=== PATIENT | male | born 1985 | race African-American/Black ===

== ENCOUNTER 2020-09-21 12:34 | Emergency (ER) | payer BC, SELFPAY ==
[2020-09-21 13:19] VITALS: BP 126/86; PULSE 111; RESP 18; TEMP 37.4; O2SAT 95; BMI 26.2
--- NOTE | 2020-09-21 13:54 | ED_ITS ---
HPI - COVID General: Chief Complaint: COVID symptoms Stated Complaint: Body aches Chest pain N/V Covid + Time Seen by Provider: 09/21/20 13:54 Triage information: No fever, cough or shortness of breath . Exposure to COVID + person last 14 days History of Present Illness: HPI Narrative: 35-year-old male patient comes in on day 8 of Covid 19 infection. Patient reports some chest discomfort and difficulty breathing at times. Patient was concerned he may be developing pneumonia. Patient appears mildly unwell but not toxic. Patient reports medical issues with anxiety but no other chronic illnesses. Patient does use marijuana and smokes cigarettes occasionally. Patient reports being diagnosed with Covid last week with symptoms starting on last Sunday. Patient appears in no pain. COVID Results: No Data to Display Review of Systems General: Reports: 10 or more systems reviewed and unremarkable except in HPI and below Resp: Reports: chest congestion Physical Exam Const: COMMON NORMALS: no acute distress and patient oriented x3 GENERAL APPEARANCE: cooperative HENMT: COMMON NORMALS: normocephalic and Normal external nose present HEAD & SCALP: normal to inspection and normocephalic NOSE: Normal external nose present MOUTH: Normal oral and palatal mucosa present Eye: GENERAL EYE: appearance normal, both eyes and all related structures Neck/C-Spine: COMMON NORMALS: full ROM Lymph: LYMPHATIC: no lymphadenopathy noted Chest: COMMONS NORMALS: normal inspection of the chest Resp: COMMON NORMALS: normal respiratory effort EFFORT & INSPECTION: Yes able to speak in complete sentences AUSCULTATION: crackles (rupinder lower rausch) Cardio: COMMON NORMALS: regular rate and regular rhythm RATE: regular rate RHYTHM: regular rhythm GI: COMMON NORMALS: non-tender : COMMON NORMALS: Yes no CVA tenderness BLADDER/KIDNEY EXAM: Yes no CVA tenderness Back/Pelvis: COMMON NORMALS: no CVA tenderness and thoracic and lumbar spine normal to inspection Extremity: COMMON NORMALS: normal to inspection Neuro: COMMON NORMALS: patient oriented x3 and moves all extremities Psych: COMMON NORMALS: mental status grossly normal and cooperative Skin: COMMON NORMALS: no rashes or lesions noted GENERAL SKIN EXAM: no rashes or lesions noted Course Vital Signs: Vital signs: Vital Signs Temperature 99.4 F 09/21/20 13:19 Pulse Rate 111 H 09/21/20 13:19 Respiratory Rate 18 09/21/20 13:19 Blood Pressure 126/86 09/21/20 13:19 Pulse Oximetry 95 09/21/20 14:08 MDM - COVID MDM Narrative: Medical decision making narrative: Patient came in today on day 8 of a COVID-19 infection. Patient reports some chest discomfort and some difficulty breathing. Patient was concerned he may be developing pneumonia. On exam patient has some crackles in bilateral rausch of the lungs with good air movement throughout. Vital signs are normal with a oxygen saturation 95%. Patient did have some mild tachycardia of heart rate at 110. Differential diagnosis includes but not limited to upper respiratory infection, pneumonia, viral syndrome, COVID-19. Patient tested positive for COVID-19 last week. Patient reports symptoms for 8 days. Patient is on quarantine until Sunday this week. Chest x-ray noted bilateral patchy rausch. Reviewed exam with patient recommended treatment with albuterol and dexamethasone. Patient reported understanding of care plan and need for follow-up or return to the ER for worsening symptoms. EKG Data: EKG 1: Attestation: I personally reviewed and interpreted this EKG as follows: (1425, EKG shows sinus tachycardia with a regular rate at 104 bpm. No ectopy or ST elevation is noted. No prior exam is available for comparison.) COVID Results: No Data to Display Discharge Plan Discharge Patient Disposition: Home Clinical Impression: Pneumonia due to 2019-nCoV Condition: Stable Prescriptions: New dexamethasone 4 mg tablet 4 mg PO BID Qty: 10 RF: 0 No Action albuterol sulfate 2.5 mg /3 mL (0.083 %) Solution For Nebulization 2.5 mg INHALATION Q4H PRN (Reason: Shortness Of Breath) RF: 0 albuterol sulfate 90 mcg/actuation HFA aerosol inhaler 2 puff INHALATION Q6H PRN (Reason: Wheezing) RF: 0 Discharge Orders: Discharge ED (Routine); Ordered 09/21/20 Ordered By: Viktor Gutierrez Referrals: Ranjana Carrera APN [Primary Care Provider] - Discharge Diet: Usual diet Discharge Activity: Increase activity as tolerated Patient Instructions: Viral Pneumonia (ED), Opioid Safety Activity Restrictions/Additional Instructions: Use albuterol every 4 hours as needed for shortness of breath or difficulty breathing. Use albuterol at least 4 times a day. Drink plenty of water. Take dexamethasone as directed. Return to the emergency room for worsening symptoms. Follow-up with primary care as needed. Coding Level of Care Code ED Area Intelligence Technician for Chg Fwd Exam Comprehensive
--- NOTE | 2020-09-21 13:54 | XRR_ITS ---
PROCEDURE INFORMATION: Exam: XR Chest Exam date and time: 09/21/2020 1:54 PM Age: 35 years old Clinical indication: Pain, cough and shortness of breath. Angina pectoris. TECHNIQUE: Imaging protocol: XR of the chest. Views: 1 view. COMPARISON: CR Chest 2 views* [id number] 03/11/2018 3:34 PM FINDINGS: Lungs: There are patchy hazy opacities in the lower chest bilaterally suspicious for pneumonia (including COVID 19 pneumonia). Pleural spaces: No pleural effusion.; No pneumothorax. Heart/Mediastinum: The cardiac silhouette is unchanged. No gross evidence of pneumomediastinum. Bones/joints: No gross fracture. XR/XR chest 1V portable [id number] IMPRESSION: There are patchy hazy opacities in the lower chest bilaterally suspicious for pneumonia (including COVID 19 pneumonia).
--- NOTE | 2020-09-21 14:06 | ECG_ITS ---
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 Measurements Intervals [place] Rate: 104 P: 65 MT: 136 QRS: -44 QRSD: 83 T: 44 QT: 330 QTc: 435 Interpretive Statements SINUS TACHYCARDIA POSSIBLE LEFT ATRIAL ENLARGEMENT [-0.1mV P WAVE IN V1/V2] MARKED LEFT AXIS DEVIATION [QRS AXIS < -30] No previous ECG available for comparison Electronically Signed On 09-21-2020 16:10:18 CDT by Susu Gatica M.D. [id number]
[2020-09-21 14:08] VITALS: O2SAT 95
[2020-09-21] MEDS: dexamethasone 4 mg Tablet 8 MG PO (14:35)
[2020-09-21 14:43] VITALS: BP 148/98; PULSE 104; RESP 18; O2SAT 97
== END 2020-09-21 14:44 | disposition home or self-care (01) ==
PROVIDERS: Emergency Provider Nurse Practitioner Family; PCP Nurse Practitioner
DX: U07.1 COVID-19 (principal); J12.82 Pneumonia due to coronavirus disease 2019
CPT/HCPCS: 71045; 93005; 99283; J8540

== ENCOUNTER 2020-10-26 09:17 | Outpatient (CLI) | payer BC, SELFPAY ==
--- NOTE | 2020-10-26 09:27 | XRR_ITS ---
PROCEDURE INFORMATION: Exam: XR Chest Exam date and time: 10/26/2020 9:27 AM Age: 35 years old Clinical indication: Patient HX: History--2 lateral xray. HX of covid. Cough TECHNIQUE: Imaging protocol: XR of the chest. Views: 2 views. Total images: 3 COMPARISON: CR XR chest 1V portable [id number] 09/21/2020 2:01 PM FINDINGS: Lungs: Unremarkable. No consolidation. Pleural spaces: Unremarkable. No pleural effusion. No pneumothorax. Heart/Mediastinum: Unremarkable. No cardiomegaly. Bones/joints: Unremarkable. XR/XR chest 2V* [id number] IMPRESSION: No acute findings.
== END 2020-10-26 09:18 | disposition home or self-care (01) ==
PROVIDERS: PCP Nurse Practitioner; Visit Provider Nurse Practitioner Family
DX: R05 Cough (principal); R06.02 Shortness of breath; Z86.16 Personal history of COVID-19
CPT/HCPCS: 71046

== ENCOUNTER 2021-03-30 14:53 | Emergency (ER) | payer BC, SELFPAY ==
[2021-03-30 15:00] VITALS: BP 141/87; PULSE 95; RESP 18; TEMP 36.7; O2SAT 98; BMI 26.9
--- NOTE | 2021-03-30 15:05 | ECG_ITS ---
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 Measurements Intervals [place] Rate: 81 P: [place]: QRS: 105 QRSD: 86 T: 0 QT: 341 QTc: 397 Interpretive Statements Normal sinus rhythm RIGHT AXIS DEVIATION [QRS AXIS > 100] POSSIBLE RIGHT VENTRICULAR CONDUCTION DELAY [RSR (QR) IN V1/V2] PROBABLE SEPTAL MYOCARDIAL INFARCTION , OF INDETERMINATE AGE [35 ms Q WAVE IN V1/V2] Compared to ECG 09/21/2020 14:15:52 Right-axis deviation now present Myocardial infarct finding now present Sinus tachycardia no longer present Left-axis deviation no longer present Electronically Signed On 03-30-2021 20:13:39 CREATIVE ENGAGEMENT DIRECTOR by Tucker Moody M.D. [id number]
--- NOTE | 2021-03-30 15:05 | XR_ITS ---
WS: [id number] Exam: XR chest 1V portable [id number] Date/Time of Exam: 03/30/2021 3:05 PM Reason For Exam: chest pain Comparison 10/26/2020. Findings: The lungs are clear and fully expanded. Costophrenic angles are sharp. No infiltrates. Bronchovascula r relief appears normal. Cardiac silhouette is unremarkable. Bony elements are intact. XR/XR chest 1V portable [id number] IMPRESSION: Unremarkable chest radiograph.
--- NOTE | 2021-03-30 15:09 | ED_ITS ---
Documented by User: ARON Roberto 03/30/21 16:26 HPI - Chest Pain General: Chief Complaint: Chest Pain Stated Complaint: HAD chest pain not now though Time Seen by Provider: 03/30/21 14:56 Source: patient Mode of arrival: ambulatory Limitations: no limitations History of Present Illness: Patient is a nice 35-year-old male who presents to ED today for evaluation following an episode of chest pain. Patient states approximately an hour ago while at rest watching TV he began developing left- sided chest pain. He states pain moved slightly down into his abdomen and desc ribed as a burning sensation. He states pain lasted for approximately an hour but states while talking to the loading machine operator helper pain completely alleviated. He has had similar pains previously that he has been told have been related to anxiety. He was concerned today because his pain was more intense than previous episodes. Patient states he has received cardiac work-ups previously including a stress test approximately a year ago that was normal. Patient is not having any shortness of breath or difficulty breathing. No palpitations. He currently denies any abdominal pain, nausea, vomiting, changes in bowel movements. He has not noticed any lower extremity redness or swelling. MD complaint: chest pain Onset (ago): hour(s) Timing of current episode: now resolved Prior episodes: Yes Onset: during rest Pain location: left chest Pain radiation: other (abdomen) Relieving factors: nothing Exacerbating factors: nothing Associated symptoms: Deny abdominal pain, dyspnea, fever(s), nausea, palpitations, syncope or vomiting Treatment prior to arrival: none Risk Factors: Coronary artery disease risk factors: hypertension Thoracic aortic dissection risk factors: none Review of Systems Const: Denies: fever(s), chills, body aches, fatigue or malaise ENMT: Denies: throat pain or odynophagia Card: Reports: chest pain (resolved now); Denies: palpitations, irregular heart rhythm, edema, swelling of feet/ankles, lightheadedness, syncope, pre-syncope, dyspnea on exertion, orthopnea, leg pain with exertion or acrocyanosis Resp: Denies: dyspnea, productive cough, non-productive cough, pain on inspiration or chest congestion GI: Denies: abdominal pain, nausea, vomiting or diarrhea : Denies: flank pain, dysuria or hematuria Musc: Denies: neck pain, back pain, extremity pain or joint pain Skin/Breast: Denies: rash Neuro: Denies: headache(s), numbness in extremities, weakness in extremities, sensory changes or dizziness Physical Exam Const: COMMON NORMALS: no acute distress, average body habitus, patient oriented x3, no limitations, healthy appearing, alert and well nourished GENERAL APPEARANCE: cooperative HENMT: COMMON NORMALS: normocephalic and atraumatic HEAD & SCALP: normoce phalic and atraumatic Neck/C-Spine: COMMON NORMALS: full ROM GENERAL: Yes normal visual inspection, No anterior neck swelling and No JVD CAROTIDS: Yes normal carotid upstroke Chest: COMMONS NORMALS: normal inspection of the chest and normal palpation of entire chest wall Resp: COMMON NORMALS: normal respiratory effort and clear to auscultation bilaterally AUSCULTATION: clear to auscultation bilaterally Cardio: COMMON NORMALS: regular rate and regular rhythm RATE: regular rate RHYTHM: regular rhythm GI: COMMON NORMALS: Normal to inspection, nondistended, normoactive bowel sounds present, Soft to palpation, non-tender, No hepatosplenomegaly present and no masses PALPATION: Yes Soft to palpation and Yes No hepatosplenomegaly present Back/Pelvis: COMMON NORMALS: thoracic and lumbar spine normal to inspection, no thoracic nor lumbar tenderness and thoraco-lumbar ROM normal Extremity: COMMON NORMALS: normal to inspection, capillary refill normal, no joint enlargement, no clubbing, cyanosis or edema, no calf tenderness and no pedal edema GENERAL: Yes normal exam except as noted Neuro: COMMON NORMALS: patient oriented x3, moves all extremities, no focal motor deficits and no sensory deficits noted SENSORIUM/ORIENTATION: Yes alert Skin: COMMON NORMALS: no rashes or lesions noted GENERAL SKIN EXAM: no rashes or lesions noted Course Vital Signs: Vital signs: Vital Signs Temperature 98.0 F 03/30/21 16:28 Pulse Rate 71 03/30/21 16:28 Respiratory Rate 16 03/30/21 16:28 Blood Pressure 137/78 03/30/21 16:28 Pulse Oximetry 99 03/30/21 16:28 [facility] - Chest Pain Medical Decision Making Patient is a 35-year-old here for evaluation following an episode of chest pain. Chest pain completely resolved upon arrival to the ED and he did not have any further episodes during his stay. Work-up including CBC, CMP, troponin were all unremarkable. CXR is normal. EKG showing no ischemic changes. Patient has had pains previously related to anxiety. He has had a stress test approximately a year ago that was reportedly normal. At this time I recommend patient follow-up with PCP for any further episodes. He may return to the ED at anytime for severe chest pain, shortness of breath, difficulty breathing, or any other concerns he may have. Patient verbalized understanding of current plan and is stable for discharge at this time. Lab Data : 03/30/21 15:25 03/30/21 15:25 Radiology Impressions Chest X-Ray 03/30/21 15:05 IMPRESSION: Unremarkable chest radiograph. Laboratory Results WBC 4.4 10^3/uL (4.0-10.0) 03/30/21 15:25 RBC 4.73 10^6/uL (4.1-5.3) 03/30/21 15:25 Hgb 14.7 g/dL (11.7-16.6) 03/30/21 15:25 Hct 42.4 % (42.0-52.0) 03/30/21 15:25 MCV 89.6 fl (80-94) 03/30/21 15:25 MCH 31.1 pg (28.0-34.0) 03/30/21 15:25 MCHC 34.7 g/dL (30.0-36.0) 03/30/21 15:25 RDW 11.6 % (12.1-15.1) L 03/30/21 15:25 Plt Count 243 10^3/cmm (130-400) 03/30/21 15:25 MPV 10.4 fL (7.4-10.4) 03/30/21 15:25 Neut % (Auto) 48.4 % 03/30/21 15:25 Lymph % (Auto) 41.0 % 03/30/21 15:25 [place] % (Auto) 8.6 % 03/30/21 15:25 Eos % (Auto) 1.1 % 03/30/21 15:25 Baso % (Auto) 0.7 % 03/30/21 15:25 Neut # (Auto) 2.14 10^3/uL (1.8-7.7) 03/30/21 15:25 Lymph # (Auto) 1.8 10^3/uL (0.8-4.8) 03/30/21 15:25 [place] # (Auto) 0.4 10^3/uL (0.2-0.9) 03/30/21 15:25 Eos # (Auto) 0.1 10^3/uL (0.0-0.8) 03/30/21 15:25 Baso # (Auto) 0.0 10^3/uL (0.0-0.1) 03/30/21 15:25 Nucleated RBC % (auto) 0 % 03/30/21 15:25 Nucleated RBCs # 0.0 /100WBC 03/30/21 15:25 Sodium 138 mmol/L (136-145) 03/30/21 15:25 Potassium 4.3 mmol/L (3.5-5.1) 03/30/21 15:25 Chloride 101 mmol/L (98-107) 03/30/21 15:25 Carbon Dioxide 25 mmol/L (22-29) 03/30/21 15:25 Anion Gap 16.3 (5-19) 03/30/21 15:25 BUN 12 mg/dL (6-20) 03/30/21 15:25 Creatinine 1.3 mg/dL (0.7-1.2) H 03/30/21 15:25 GFR Calculation 75.6 mL/min (90-130) L 03/30/21 15:25 Glucose 106 mg/dL (65-115) 03/30/21 15:25 Calculated Osmolality 286 mOsm/kg (285-295) 03/30/21 15:25 Calcium 10.1 mg/dL (8.5-10.5) 03/30/21 15:25 Total Bilirubin 0.5 mg/dL (0.15-1.2) 03/30/21 15:25 AST 42 U/L (0-40) H 03/30/21 15:25 ALT 38 U/L (0-41) 03/30/21 15:25 Alkaline Phosphatase 79 IU/L (40-130) 03/30/21 15:25 Troponin T Gen 5 ng/L 9 ng/L (0-15) 03/30/21 15:25 Total Protein 7.9 g/dL (6.6-8.7) 03/30/21 15:25 Albumin 5.2 g/dL (3.5-5.2) 03/30/21 15:25 Globulin 2.7 g/dL (1.3-4.6) 03/30/21 15:25 EKG Data EKG 1: EKG interpretation date: 03/30/21 EKG interpretation time: 15:16 Interpretation: Normal sinus rhythm Rate 81 Computer-generated interpretation reading a flutter/tachycardia which is not accurate T wave inversions noted in lead III; no reciprocal changes EKG reviewed along with Dr. Mae Discharge Plan Discharge Patient Disposition: Home Clinical Impression: Non-cardiac chest pain Condition: Stable Prescriptions: No Action albuterol sulfate 2.5 mg /3 mL (0.083 %) Solution For Nebulization 2.5 mg INHALATION Q4H PRN (Reason: Shortness Of Breath) 0RF Rx Instructions: SEE PHARMACY COMMENT albuterol sulfate 90 mcg/actuation HFA aerosol inhaler 2 puff INHALATION Q6H PRN (Reason: Wheezing) 0RF dexamethasone 4 mg tablet 4 mg PO BID Qty: 10 0RF Discharge Orders: Discharge ED (Routine); Ordered 03/30/21 Ordered By: Nathaly Bass Coding Level of Care Code ED Trip Rider for Chg Fwd Exam Comprehensive Documented by User: Reen Mae DO 03/30/21 16:54 HPI - Chest Pain General: Chief Complaint: Chest Pain Stated Complaint: HAD chest pain not now though Time Seen by Provider: 03/30/21 14:56 Course Vital Signs: Vital signs: Vital Signs Temperature 98.0 F 03/30/21 16:28 Pulse Rate 71 03/30/21 16:28 Respiratory Rate 16 03/30/21 16:28 Blood Pressure 137/78 03/30/21 16:28 Pulse Oximetry 99 03/30/21 16:28 MDM - Chest Pain Medical Decision Making Patient is a 35-year-old here for evaluation following an episode of chest pain. Chest pain completely resolved upon arrival to the ED and he did not have any further episodes during his stay. Work-up including CBC, CMP, troponin were all unremarkable. CXR is normal. EKG showing no ischemic changes. Patient has had pains previously related to anxiety. He has had a stress test approximately a year ago that was reportedly normal. At this time I recommend patient follow-up with PCP for any further episodes. He may return to the ED at anytime for severe chest pain, shortness of breath, difficulty breathing, or any other concerns he may have. Patient verbalized understanding of current plan and is stable for discharge at this time. Chart reviewed and patient discussed with midlevel. Agree with assessment and plan. Lab Data : 03/30/21 15:25 03/30/21 15:25 Radiology Impressions Chest X-Ray 03/30/21 15:05 IMPRESSION: Unremarkable chest radiograph. Laboratory Results WBC 4.4 10^3/uL (4.0-10.0) 03/30/21 15:25 RBC 4.73 10^6/uL (4.1-5.3) 03/30/21 15:25 Hgb 14.7 g/dL (11.7-16.6) 03/30/21 15:25 Hct 42.4 % (42.0-52.0) 03/30/21 15:25 MCV 89.6 fl (80-94) 03/30/21 15:25 MCH 31.1 pg (28.0-34.0) 03/30/21 15:25 MCHC 34.7 g/dL (30.0-36.0) 03/30/21 15:25 RDW 11.6 % (12.1-15.1) L 03/30/21 15:25 Plt Count 243 10^3/cmm (130-400) 03/30/21 15:25 MPV 10.4 fL (7.4-10.4) 03/30/21 15:25 Neut % (Auto) 48.4 % 03/30/21 15:25 Lymph % (Auto) 41.0 % 03/30/21 15:25 [place] % (Auto) 8.6 % 03/30/21 15:25 Eos % (Auto) 1.1 % 03/30/21 15:25 Baso % (Auto) 0.7 % 03/30/21 15:25 Neut # (Auto) 2.14 10^3/uL (1.8-7.7) 03/30/21 15:25 Lymph # (Auto) 1.8 10^3/uL (0.8-4.8) 03/30/21 15:25 [place] # (Auto) 0.4 10^3/uL (0.2-0.9) 03/30/21 15:25 Eos # (Auto) 0.1 10^3/uL (0.0-0.8) 03/30/21 15:25 Baso # (Auto) 0.0 10^3/uL (0.0-0.1) 03/30/21 15:25 Nucleated RBC % (auto) 0 % 03/30/21 15:25 Nucleated RBCs # 0.0 /100WBC 03/30/21 15:25 Sodium 138 mmol/L (136-145) 03/30/21 15:25 Potassium 4.3 mmol/L (3.5-5.1) 03/30/21 15:25 Chloride 101 mmol/L (98-107) 03/30/21 15:25 Carbon Dioxide 25 mmol/L (22-29) 03/30/21 15:25 Anion Gap 16.3 (5-19) 03/30/21 15:25 BUN 12 mg/dL (6-20) 03/30/21 15:25 Creatinine 1.3 mg/dL (0.7-1.2) H 03/30/21 15:25 GFR Calculation 75.6 mL/min (90-130) L 03/30/21 15:25 Glucose 106 mg/dL (65-115) 03/30/21 15:25 Calculated Osmolality 286 mOsm/kg (285-295) 03/30/21 15:25 Calcium 10.1 mg/dL (8.5-10.5) 03/30/21 15:25 Total Bilirubin 0.5 mg/dL (0.15-1.2) 03/30/21 15:25 AST 42 U/L (0-40) H 03/30/21 15:25 ALT 38 U/L (0-41) 03/30/21 15:25 Alkaline Phosphatase 79 IU/L (40-130) 03/30/21 15:25 Troponin T Gen 5 ng/L 9 ng/L (0-15) 03/30/21 15:25 Total Protein 7.9 g/dL (6.6-8.7) 03/30/21 15:25 Albumin 5.2 g/dL (3.5-5.2) 03/30/21 15:25 Globulin 2.7 g/dL (1.3-4.6) 03/30/21 15:25 Discharge Plan Discharge Patient Disposition: Home Clinical Impression: Non-cardiac chest pain Condition: Stable Prescriptions: No Action albuterol sulfate 2.5 mg /3 mL (0.083 %) Solution For Nebulization 2.5 mg INHALATION Q4H PRN (Reason: Shortness Of Breath) 0RF Rx Instructions: SEE PHARMACY COMMENT albuterol sulfate 90 mcg/actuation HFA aerosol inhaler 2 puff INHALATION Q6H PRN (Reason: Wheezing) 0RF dexamethasone 4 mg tablet 4 mg PO BID Qty: 10 0RF Discharge Orders: Discharge ED (Routine); Ordered 03/30/21 Ordered By: Nathaly Bass Coding Level of Care Code ED Trip Rider for Chg Fwd Exam Comprehensive
[2021-03-30 15:38] LABS: Basophils % 0.7 %; Eosinophils # 0.1 10^3/uL (0.0-0.8); Eosinophils % 1.1 %; Hematocrit 42.4 % (42.0-52.0); Hemoglobin 14.7 g/dL (11.7-16.6); Lymphocytes # 1.8 10^3/uL (0.8-4.8); Mean Corpuscular HGB Conc 34.7 g/dL (30.0-36.0); Mean Corpuscular Hemoglobin 31.1 pg (28.0-34.0); Mean Corpuscular Volume 89.6 fl (80-94); Mean Platelet Volume 10.4 fL (7.4-10.4); Monocytes # 0.4 10^3/uL (0.2-0.9); Monocytes % 8.6 %; Neutrophils # 2.14 10^3/uL (1.8-7.7); Neutrophils % 48.4 %; Nucleated Red Blood Cells % 0 %; Platelet Count 243 10^3/cmm (130-400); Red Blood Count 4.73 10^6/uL (4.1-5.3); Red Cell Distribution Width 11.6 % (12.1-15.1); White Blood Count 4.4 10^3/uL (4.0-10.0)
[2021-03-30 15:57] LABS: Alanine Aminotransferase 38 U/L (0-41); Albumin Level 5.2 g/dL (3.5-5.2); Alkaline Phosphatase 79 IU/L (40-130); Anion Gap 16.3 (5-19); Aspartate Amino Transferase 42 U/L (0-40); Blood Urea Nitrogen 12 mg/dL (6-20); Calcium 10.1 mg/dL (8.5-10.5); Carbon Dioxide 25 mmol/L (22-29); Chloride 101 mmol/L (98-107); Globulin 2.7 g/dL (1.3-4.6); Glomerular Filtration Rate 75.6 mL/min (90-130); Glucose 106 mg/dL (65-115); Osmolality Calculated 286 mOsm/kg (285-295); Potassium 4.3 mmol/L (3.5-5.1); Sodium 138 mmol/L (136-145); Total Bilirubin 0.5 mg/dL (0.15-1.2); Total Protein 7.9 g/dL (6.6-8.7)
[2021-03-30 16:04] LABS: Troponin T (5th) Once 9 ng/L (0-15)
[2021-03-30 16:27] VITALS: BP 137/78; PULSE 71; RESP 16; TEMP 36.7; O2SAT 99
[2021-03-30 16:28] VITALS: BP 137/78; PULSE 71; RESP 16; TEMP 36.7; O2SAT 99
== END 2021-03-30 16:25 | disposition home or self-care (01) ==
PROVIDERS: Emergency Provider Physician Assistant
DX: R07.89 Other chest pain (principal)
CPT/HCPCS: 71045; 80053; 84484; 85025; 93005; 99283

== ENCOUNTER 2021-07-05 08:10 | Emergency (ER) | payer BC, SELFPAY ==
[2021-07-05 08:18] VITALS: BP 149/96; PULSE 98; RESP 18; TEMP 36.6; O2SAT 98; BMI 27.3
--- NOTE | 2021-07-05 08:23 | XR_ITS ---
WS: [id number] Left ankle, 3 views, 07/05/2021 Clinical Data: pain Comparison: None. Findings: No fractures or dislocations are seen. The ankle mortise is normal. The talus and calcaneus are unrem arkable. No soft tissue swelling over the medial or lateral malleolus is seen. XR/XR ankle LT min 3V* [id number] Impression: Negative left ankle.
[2021-07-05 08:32] VITALS: BP 129/86; PULSE 78; RESP 16; O2SAT 98
--- NOTE | 2021-07-05 08:36 | W.ED.EXTPRO ---
HPI - Extremity Problem General: Chief complaint: Extremity Injury, Lower Stated complaint: Left ankle pain Time Seen by Provider: 07/05/21 08:12 Source: patient Mode of arrival: ambulatory Limitations: no limitations History of Present Illness: 35-year-old male presents emergency room complaining of left ankle pain. Patient had an inversion injury of the left ankle walking uneven grass covered ground. Pain is lateral. He has injured this ankle in the past he has been able to bear weight on it its improved with ice and compression. Denies any other injury. MD Complaint: joint pain Onset (ago): day(s) (1) Pain Consistency: constant Location: left Quality: aching Radiation: none Relieving factors: cold therapy, immobilization and elevation Exacerbating factors: weight bearing and walking Associated symptoms: Deny arthralgias, chest pain, fever(s), myalgias, rash or short of breath Review of Systems Const: Denies: fever(s) Card: Denies: chest pain Resp: Denies: dyspnea, productive cough or non-productive cough GI: Denies: abdominal pain, nausea, vomiting or diarrhea Skin/Breast: Denies: rash PFSH ED PFSH: Medical History (Updated 07/07/21 @ 07:18 by Rene Mae DO) Pneumonia due to 2019-nCoV Surgical History (Updated 07/07/21 @ 07:18 by Rene Mae DO) No significant past surgical history Social History (Updated 07/07/21 @ 07:18 by Rene Mae DO) Smoking and tobacco status: never smoked Alcohol intake: current Physical Exam Const: COMMON NORMALS: no acute distress GENERAL APPEARANCE: cooperative and comfortable ORIENTATION/CONSCIOUSNESS: Yes awake, Yes oriented to person, Yes oriented to place and Yes oriented to time HENMT: COMMON NORMALS: normocephalic and atraumatic HEAD & SCALP: normocephalic and atraumatic Neck/C-Spine: COMMON NORMALS: no JVD Resp: COMMON NORMALS: normal respiratory effort, No retractions, No use of accessory muscles and clear to auscultation bilaterally AUSCULTATION: clear to auscultation bilaterally Cardio: COMMON NORMALS: no JVD, regular rate, regular rhythm and No murmurs present (Cardio) RATE: regular rate RHYTHM: regular rhythm Extremity: OTHER: Left ankle pain and swelling over the lateral malleolus good endpoint on inversion patient is able to dorsi and plantarflex against resistance. Dorsalis pedis posterior tibialis pulses normal sensation normal. No skin breakdown ulceration or laceration noted. Neuro: SENSORIUM/ORIENTATION: Yes oriented to person, Yes oriented to place and Yes oriented to time Skin: COMMON NORMALS: no rashes or lesions noted GENERAL SKIN EXAM: no rashes or lesions noted Course Vital Signs: Vital signs: Vital Signs Temperature 97.9 F 07/05/21 08:18 Pulse Rate 70 07/05/21 08:54 Respiratory Rate 16 07/05/21 08:54 Blood Pressure 129/86 07/05/21 08:54 Pulse Oximetry 98 07/05/21 08:54 MDM - Extremity (Nontraumatic) Medical Decision Making X-ray unremarkable discharge patient home with rest ice compression elevation anti-inflammatories and follow-up as needed Patient was discharged home but for unknown reasons the EMR system will not allow me to juwan the discharge as discharged to home. Medical Records I reviewed the patient's medical records. Lab Data I reviewed the patient's lab results. Radiology Impressions Ankle X-Ray 07/05/21 08:23 Impression: Negative left ankle. Discharge Plan Discharge Patient Disposition: Home Clinical Impression: Ankle sprain and strain Condition: Stable Prescriptions: New diclofenac sodium 75 mg tablet,delayed release (DR/EC) 75 mg PO Q12H PRN (Reason: pain) Qty: 20 0RF No Action albuterol sulfate 2.5 mg /3 mL (0.083 %) Solution For Nebulization 2.5 mg INHALATION Q4H PRN (Reason: Shortness Of Breath) 0RF Rx Instructions: SEE PHARMACY COMMENT albuterol sulfate 90 mcg/actuation HFA aerosol inhaler 2 puff INHALATION Q6H PRN (Reason: Wheezing) 0RF dexamethasone 4 mg tablet 4 mg PO BID Qty: 10 0RF Discharge Orders: Discharge ED (Routine); Ordered 07/05/21 Ordered By: Rene Mae Discharge Diet: Usual diet Discharge Activity: Increase activity as tolerated Patient Instructions: Ankle Sprain (ED), Opioid Safety Activity Restrictions/Additional Instructions: Increase activity as tolerated if symptoms persist follow-up your primary care doctor for reevaluation and consideration of advanced imaging. 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
[2021-07-05] MEDS: ketorolac 30 mg/mL INJ 60 MG IM (08:46)
[2021-07-05 08:54] VITALS: BP 129/86; PULSE 70; RESP 16; O2SAT 98
== END 2021-07-05 08:56 | disposition home or self-care (01) ==
PROVIDERS: Emergency Provider Family Medicine
DX: S93.402A Sprain of unspecified ligament of left ankle, initial encounter (principal); X58.XXXA Exposure to other specified factors, initial encounter
CPT/HCPCS: 73610; 96372; 99283; J1885

== ENCOUNTER 2022-06-11 08:13 | Emergency (ER) | payer BC, SELFPAY ==
[2022-06-11 08:26] VITALS: BP 159/90; PULSE 86; RESP 14; TEMP 36.8; O2SAT 98
--- NOTE | 2022-06-11 08:26 | ED_ITS ---
HPI - General Adult General: Chief complaint: General Medical Stated complaint: sore throat Time Seen by Provider: 06/11/22 08:15 Source: patient Mode of arrival: ambulatory Limitations: no limitations History of Present Illness: Patient is a very nice 36-year-old male who presents to ED today with a complaint of a sore throat. He states he has been having pain over the past 2 to 3 days. He does report his daughter recently tested positive for strep throat. Patient is eating, drinking, swallowing, controlling secretions normally. No fevers but he does report chills. He has no other URI-like symptoms. Denies neck pain/swelling or headache. Onset (ago): day(s) Location: mouth (throat) Severity: moderate Pain Consistency: constant Relieving factors: none Exacerbating factors: other (swallowing) Associated symptoms: Deny chest pain, dyspnea, headache(s), malaise, nausea, rash or vomiting Treatments prior to arrival: none Review of Systems Const: Reports: chills; Denies: fever(s), body aches, fatigue or malaise ENMT: Reports: throat pain and odynophagia; Denies: dental pain, ear or mastoid pain, nasal discharge, nasal congestion, post nasal drip or sinus pain Card: Denies: chest pain Resp: Denies: dyspnea GI: Denies: nausea, vomiting or diarrhea Musc: Denies: neck pain Skin/Breast: Denies: rash Neuro: Denies: headache(s) [facility] ED PFSH: Medical History Pneumonia due to 2019-nCoV Surgical History No significant past surgical history Social History Smoking and tobacco status: never smoked Alcohol intake: current Physical Exam Const: COMMON NORMALS: no acute distress, average body habitus, patient oriented x3, no limitations, healthy appearing, alert and well nourished GENERAL APPEARANCE: cooperative ORIENTATION/CONSCIOUSNESS: Yes awake, Yes oriented to person, Yes oriented to place and Yes oriented to time HENMT: COMMON NORMALS: normocephalic, atraumatic, hearing grossly normal bilaterally, external ears normal, EAC's normal, TM's normal bilaterally, Normal external nose present, Normal nasal mucous membranes and turbinates present, moist oral mucous membranes, dentition normal and gingiva normal HEAD & SCALP: normal to inspection, normocephalic and atraumatic FACE & SINUS: normal facial exam and sinuses nontender NOSE: Normal external nose present and Normal nasal mucous membranes and turbinates present EXTERNAL EAR: Yes external ears normal EXTERNAL AUDITORY CANAL: EAC's normal TYMPANIC MEMBRANE: TM's normal bilaterally MOUTH: Normal oral and palatal mucosa present, lip normal and tongue normal TEETH & GINGIVA: Yes fair dentition THROAT: uvula midline, abnormal tonsil bilateral erythema, exudates and hypertrophy and posterior oropharynx abnormal erythema Eye: COMMON NORMALS: Equal, round and reactive pupils present, EOMs intact bilaterally and conjunctivae normal GENERAL EYE: appearance normal, both eyes and all related structures CONJUNCTIVA: Yes conjunctivae normal PUPIL: Yes Equal, round and reactive pupils present Neck/C-Spine: COMMON NORMALS: full ROM, no lymphadenopathy and no meningeal signs Resp: COMMON NORMALS: normal respiratory effort and clear to auscultation bilaterally AUSCULTATION: clear to auscultation bilaterally Cardio: COMMON NORMALS: regular rate and regular rhythm RATE: regular rate RHYTHM: regular rhythm Neuro: COMMON NORMALS: patient oriented x3 SENSORIUM/ORIENTATION: Yes alert, Yes oriented to person, Yes oriented to place and Yes oriented to time MENINGEAL SIGNS: Yes no meningeal signs Skin: COMMON NORMALS: no rashes or lesions noted GENERAL SKIN EXAM: no rashes or lesions noted Course Vital Signs: Vital signs: Vital Signs Temperature 98.2 F 06/11/22 08:26 Pulse Rate 86 06/11/22 08:26 Respiratory Rate 14 06/11/22 08:26 Blood Pressure 159/90 06/11/22 08:26 Pulse Oximetry 98 06/11/22 08:26 MDM - General Adult Medical Decision Making Strep +. Will treat with Bicillin LA IM. Return to ED precautions given. Lab Data Laboratory Results Group A Strep Rapid Positive (Negative) H 06/11/22 08:25 Discharge Plan Discharge Patient Disposition: Home Clinical Impression: Strep tonsillitis Condition: Stable Prescriptions: No Action albuterol sulfate 2.5 mg /3 mL (0.083 %) Solution For Nebulization 2.5 mg INHALATION Q4H PRN (Reason: Shortness Of Breath) Rx Instructions: SEE PHARMACY COMMENT albuterol sulfate 90 mcg/actuation HFA aerosol inhaler 2 puff INHALATION Q6H PRN (Reason: Wheezing) dexamethasone 4 mg tablet 4 mg PO BID Qty: 10 0RF diclofenac sodium 75 mg tablet,delayed release (DR/EC) 75 mg PO Q12H PRN (Reason: pain) Qty: 20 0RF Discharge Orders: Discharge ED (Routine); Ordered 06/11/22 Ordered By: Nathaly Bass Referrals: Michell Garcia DO [Primary Care Provider] - Patient Instructions: Strep Throat (DC), Tonsillitis (ED), Strep Throat - Adult 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
[2022-06-11 08:51] LABS: Rapid Strep A Test Positive (Negative)
[2022-06-11 09:31] VITALS: PULSE 82; RESP 16; O2SAT 99
== END 2022-06-11 09:32 | disposition home or self-care (01) ==
PROVIDERS: Emergency Provider Physician Assistant; PCP Family Medicine
DX: J03.00 Acute streptococcal tonsillitis, unspecified (principal)
CPT/HCPCS: 87880; 96372; 99284; J0561

== ENCOUNTER 2024-10-02 14:02 | Emergency (ER) | payer SELFPAY ==
[2024-10-02 14:07] VITALS: BP 135/80; PULSE 104; RESP 18; TEMP 36.4; O2SAT 96; BMI 29.5
--- OUTSIDE RECORDS SUMMARY | 2024-10-02 14:08 | XMS_ITS | Patient Health Record ---
Author Organization [facility] Address [address] [place] [address] Care Team Providers Care Design Center Consultant Name Role Phone Lukas SORTO, Melo Primary Care Provider Unavailabl e KRISTA GAMBOA Unavailable [phone] Reason For Referral No Information Medications Medication SIG (Take, Route, Fr equency, Duration) Notes Start Date End Date Status Flonase 50 MCG/ACT 2 sprays Nasally Onc e a day; Duration: 30 day(s) 07/22/2015 Not-Taking Social History Tobacco Use: Social History Observation Description Date Details (start date - stop date) Current Smoker NA - NA Tobacco Use/Smoking Question Answer Notes smoking status : current smoker Section Notes: pt smokes marijuana pt smokes marijuana pt smoke s marijuana pt smokes marijuana pt smokes marijuana pt smoke s marijuana pt smokes marijuana pt smokes marijuana Problems Problem Type SNOMED Code ICD Code Onset Dates Problem Status W/U Status Risk Notes Problem 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
--- OUTSIDE RECORDS SUMMARY | 2024-10-02 14:08 | XMS_ITS | Clinical Summary ---
Author Organization [facility] Address [address] [facility] Attn: [place] [address] Care Team Providers Care Drier Belt Conveyor Name Role Phone Jennifer Beavers DO Primary Care Provider Allergies Active Allergy Reactions Criticality Noted Date Comments Sulfamethoxazole-Trimethoprim Hives High 2023 Medications No known medications Active Problems No known active problems Encounters Date Type Department Care Team Description 07/29/2024 External Device Data [facility] Provider, Abstract 07/29/2024 External Device Data [facility] Provider, Abstract 07/29/2024 External Device Data [facility] Provider, Abstract 07/23/[address] [phone] Madisyn Garcia, FAITH Drug Screen 07/23/2024 Telephone [facility] [address] [place] [phone] Jennifer Beavers DO Erroneous encounter-disregard from Last 3 Months Family History Medical History Relation Name Comments Unknown Father No Known Problems Mother Relation Name Status Comments Father Mother Social History Tobacco Use Types Packs/Day Years Used Date Smoking Tobacco: Every Day Cigarettes Smokeless Tobacco: Never Alcohol Use Standard Drinks/Week Comments Yes 3 (1 standard drink = 0.6 oz pur e alcohol) Sex and Gender Information Value Date Recorded Sex Assigned at Not on file 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 Gender Identity Not on file Sexual Orientation Not on file Last Filed Vital Signs Vital Sign Reading Time Taken Comments Blood Pressure 128/78 05/17/2023 9:29 AM CDT Pulse 90 05/17/2023 9:29 AM CDT Temperature 36.8 C (98.2 F) 05/17/2023 9:29 AM CDT Respiratory Rate 20 09/13/2016 11:38 AM CDT Oxygen Saturation 99% 05/17/2023 9:29 AM CDT Inhaled Oxygen Concentration - - Weight 80.5 kg (177 lb 6.4 oz) 05/17/2023 9:29 A M CDT Height 175.3 cm (5' 9 ) 05/17/2023 9:29 AM CDT Body Mass Index 26.2 05/17/2023 9:29 AM CDT Plan of Treatment Health Maintenance Due Date Last Done Comments DTAP/TDAP/TD VACCINES (1 - Tdap) 07/10/2003 HEPATITIS B VACCINES (1 of 3 - 19+ 3-dose series) 05/2003 HPV VACCINES (1 - 3-dose SCDM series) 07/10/2011 Preventative Visit- Commercial 02/06/2024 05/17/2023 INFLUENZA VACCINE (#1) 2024 Insurance [employer] BLUE ACCESS/TRUE BLUE PPO Care Teams Drier Belt Conveyor Relationship Specialty Start Date End Date Jennifer Beavers DO [address] [place] [id number] PCP - General Family Practice 05/17/23
--- NOTE | 2024-10-02 14:28 | XR_ITS ---
WS: [id number] Exam: XR foot RT min 3V* [id number] Date/Time of Exam: 10/02/2024 2:31 PM Reason For Exam: pain near right big toe No fracture. The joints are preserved. Normal soft tissues. XR/XR foot RT min 3V* [id number] IMPRESSION: 1. Negative RIGHT foot.
[2024-10-02 14:43] LABS: Glucose Urine UA Negative (Normal); Nitrate Urine Negative (Negative); Specific Gravity, Urine 1.023 (1.005-1.030)
--- NOTE | 2024-10-02 14:43 | W.ED.EXTPRO ---
HPI - Extremity Problem General: Chief complaint: Extremity Injury, Lower Stated complaint: R big Toe possible spider bite or broken Uti Time Seen by Provider: 10/02/24 14:03 Source: patient Mode of arrival: ambulatory Limitations: no limitations History of Present Illness: Patient is a 39-year-old male who presents the emergency department with a couple different complaints. States that his right big toe has been bothering him as he thinks he got bit by a spider, or possibly injured it while working on his car. Has been given him issues for the past week, has remained ambulatory though he notes that the pain is a 15/10. He has not been taking any medications for this, denies any fever or nausea/vomiting. No other systemic symptoms are reported. He also states that he thinks he is having a urinary tract infection and would like a urinalysis. States that he has been having a weird urine stream but otherwise denies any hematuria or dysuria. Vitals unremarkable at this time. Patient nontoxic-appearing. MD Complaint: extremity pain (Right great toe) Onset (ago): week(s) Pain Consistency: constant Severity scale (1-10): >10 Radiation: none Exacerbating factors: weight bearing and walking Associated symptoms: Deny chest pain, fever(s) or rash Context: other (Thinks he was bit by a spider) Related Data Home Medications ?Medication ?Instructions ?Recorded ?Confirmed albuterol sulfate 2.5 mg/3 mL 2.5 mg inhalation Q4H PRN 09/21/20 09/21/20 (0.083 %) solution for nebulization Shortness Of Breath albuterol sulfate 90 mcg/actuation 2 puff inhalation Q6H PRN Wheezing 09/21/20 09/21/20 aerosol inhaler Previous Rx's ?Medication ?Instructions ?Recorded dexamethasone 4 mg tablet 4 mg PO BID #10 tabs 09/21/20 diclofenac sodium 75 mg 75 mg PO Q12H PRN pain #20 tabs 07/05/21 tablet,delayed release Held on 10/02/24. Instructions: Resume on 10/09/24. amoxicillin 875 mg-potassium 1 tab PO BID 10 days #20 tabs 10/02/24 clavulanate 125 mg tablet ketorolac 10 mg tablet 10 mg PO Q8H PRN pain #15 tabs 10/02/24 Allergies Allergy/AdvReac Type Severity Reaction Status Date / Time Sulfa (Sulfonamide Allergy ALGY-Rash Verified 03/30/21 15:05 Antibiotics) Review of Systems General: Reports: 10 or more systems reviewed and unremarkable except in HPI and below Const: Denies: fever(s) or chills Card: Denies: chest pain Resp: Denies: dyspnea or productive cough GI: Denies: abdominal pain, nausea, vomiting or diarrhea : Reports: change in urine stream; Denies: flank pain, difficulty urinating, dysuria or hematuria Musc: Reports: extremity pain (Right great toe); Denies: neck pain, back pain, extremity swelling, joint pain, joint swelling, joint redness, joint warmth, limited range of motion or muscle weakness Skin/Breast: Denies: rash Neuro: Denies: headache(s), numbness in extremities or weakness in extremities PFSH ED PFSH: Medical History Pneumonia due to 2019-nCoV Surgical History No significant past surgical history Social History Smoking and tobacco/nicotine status: never used tobacco/nicotine Alcohol intake: current Physical Exam Const: COMMON NORMALS: no acute distress, patient oriented x3, no limitations, healthy appearing, alert and well nourished HENMT: COMMON NORMALS: normocephalic and atraumatic HEAD & SCALP: normocephalic and atraumatic Neck/C-Spine: COMMON NORMALS: full ROM, supple and no meningeal signs Resp: COMMON NORMALS: normal respiratory effort, No use of accessory muscles and clear to auscultation bilaterally AUSCULTATION: clear to auscultation bilaterally Cardio: COMMON NORMALS: regular rate and regular rhythm RATE: regular rate RHYTHM: regular rhythm Extremity: COMMON NORMALS: full ROM, capillary refill normal, no joint enlargement and no clubbing, cyanosis or edema NARRATIVE EXTREMITY EXAM: There is no discernible erythema of the right great toe, though difficult to appreciate due to patient's ethnicity. Tender to palpation over the first MTP joint on the right foot, good strength and sensations are preserved. Pulses present. No nail abnormality. No indication of any bug bite. Neuro: COMMON NORMALS: patient oriented x3, moves all extremities, no focal motor deficits and no sensory deficits noted SENSORIUM/ORIENTATION: Yes alert MENINGEAL SIGNS: Yes no meningeal signs Skin: COMMON NORMALS: no rashes or lesions noted GENERAL SKIN EXAM: no rashes or lesions noted Course Vital Signs: Vital signs: Vital Signs Temperature 97.6 F 10/02/24 14:07 Pulse Rate 104 H 10/02/24 14:07 Respiratory Rate 18 10/02/24 14:07 Blood Pressure 135/80 10/02/24 14:07 Pulse Oximetry 96 10/02/24 14:07 Oxygen Delivery Me thod Room Air 10/02/24 14:07 MDM - Extremity (Nontraumatic) Medical Decision Making Patient presented for complaints of pain to his right great toe as well as symptoms of a urinary tract infection. His foot, on physical exam, did not appear overtly infectious, neurologically intact and no vascular symptoms. He was nontoxic-appearing overall. The x-ray of his right foot did not show any osseous findings or significant edema subcutaneous. Urinalysis does show evidence of mild urinary tract infection. Augmentin appropriate for both etiology if his pain in his right foot attributable to cellulitis from a spider bite, which patient states he thinks caused it. With no structural abnormality he is given other support options for home and he is given return precautions. Instructed to follow-up with primary care. He does note that the Toradol he was given here did help significantly. Lab Data Radiology Impressions Foot X-Ray 10/02/24 14:28 IMPRESSION: 1. Negative RIGHT foot. Laboratory Results Urine Color Yellow (Yellow) 10/02/24 14:38 Urine Appearance Clear (CLEAR) 10/02/24 14:38 Urine pH 5.5 (5-7) 10/02/24 14:38 Ur Specific [place] 1.023 (1.005-1.030) 10/02/24 14:38 Urine Protein Negative (Negative) 10/02/24 14:38 Urine Glucose (UA) Negative (Normal) 10/02/24 14:38 Urine Ketones Trace (Negative) 10/02/24 14:38 Urine Blood Negative (Negative) 10/02/24 14:38 Urine Nitrate Negative (Negative) 10/02/24 14:38 Urine Bilirubin Negative (Negative) 10/02/24 14:38 Urine Urobilinogen 1.0 mg/dL (Negative) 10/02/24 14:38 Ur Leukocyte Esterase Trace (Negative) A 10/02/24 14:38 Urine RBC 0-2 /hpf (0-2) 10/02/24 14:38 Urine WBC 11-20 /hpf (0-5) H 10/02/24 14:38 Ur Squamous Epith Cells 0-5 /hpf (0-5) 10/02/24 14:38 Amorphous Sediment Not Reportable 10/02/24 14:38 Urine Bacteria None seen /hpf (NONE) 10/02/24 14:38 Hyaline Casts 0-4 /lpf H 10/02/24 14:38 All radiology interpretation(s) finalized by discharge Discharge Plan Discharge Patient Disposition: Home Clinical Impression: Cellulitis Qualifiers: Site of cellulitis: extremity Site of cellulitis of extremity: lower extremity Laterality: right Qualified Code(s): L03.115 - Cellulitis of right lower limb Urinary tract infection Qualifiers: Urinary tract infection type: acute cystitis Hematuria presence: without hematuria Qualified Code(s): N30.00 - Acute cystitis without hematuria Condition: Stable Prescriptions: New amoxicillin-pot clavulanate 875-125 mg tablet 1 tab PO BID 10 Days Qty: 20 0RF ketorolac 10 mg tablet 10 mg PO Q8H PRN (Reason: pain) Qty: 15 0RF Held diclofenac sodium 75 mg tablet,delayed release (DR/EC) 75 mg PO Q12H PRN (Reason: pain) Qty: 20 0RF Hold Instructions: Resume on 10/09/24. No Action albuterol sulfate 2.5 mg /3 mL (0.083 %) Solution For Nebulization 2.5 mg INHALATION Q4H PRN (Reason: Shortness Of Breath) Rx Instructions: SEE PHARMACY COMMENT albuterol sulfate 90 mcg/actuation HFA aerosol inhaler 2 puff INHALATION Q6H PRN (Reason: Wheezing) dexamethasone 4 mg tablet 4 mg PO BID Qty: 10 0RF Discharge Orders: Discharge ED (Routine); Ordered 10/02/24 Ordered By: Artem Larry Referrals: Michell Garcia DO [Primary Care Provider, PAPER PATTERN INSPECTOR] Patient Instructions: Patient Portal & Raquel Instructions Activity Restrictions/Additional Instructions: Discharge Instructions: UTI & Cellulitis Diagnosis: - Urinary tract infection (UTI) - Cellulitis of the right foot Antibiotic Therapy: - Augmentin (amoxicillin/clavulanate) prescribed at twice daily dosing for 10 days. This regimen is supported by clinical trials demonstrating comparable efficacy and safety to three times daily dosing for complicated UTI and skin/soft tissue infections. Augmentin is FDA-approved for both indications. Medication Instructions: - Take Augmentin every 12 hours (twice daily) with a meal or snack to reduce gastrointestinal upset. - Complete the full 10-day course, even if symptoms improve early. Premature discontinuation may reduce treatment efficacy and increase risk of bacterial resistance. - If a dose is missed, take it as soon as possible unless it is almost time for the next dose; do not double doses. Monitoring and Adverse Effects: - Diarrhea is common; if severe or lasting more than 2?3 days, contact a healthcare provider. Rarely, watery or bloody stools may occur even weeks after therapy; seek prompt medical attention if this develops. - Allergic reactions (rash, itching, swelling, difficulty breathing) may occur, especially in those with penicillin allergy. Discontinue Augmentin and seek immediate medical attention if any signs of hypersensitivity develop. - Serious skin reactions (rash, mucosal lesions) require immediate discontinuation and medical evaluation. - Other possible side effects: nausea, vomiting, abdominal pain. Cellulitis Care: - Elevate the affected foot to reduce swelling and promote healing, as recommended by the IDSA. - Monitor for signs of worsening infection: increasing redness, swelling, pain, fever, or drainage. If these occur, seek medical attention. - Avoid trauma or pressure to the affected area. UTI Care: - Maintain adequate hydration. - Monitor for persistent or worsening urinary symptoms (pain, burning, frequency, urgency, blood in urine) or fever. If these occur, contact a healthcare provider. Follow-Up: - Schedule follow-up as directed to assess clinical response. - If symptoms of either infection do not improve within 5 days, or worsen, reassessment is indicated. The IDSA recommends extending therapy if infection persists beyond 5 days. Antibiotic Stewardship: - Augmentin should only be used for proven or strongly suspected bacterial infections. It is not effective for viral illnesses. When to Seek Immediate Care: - Signs of severe allergic reaction (difficulty breathing, swelling of face/throat, severe rash) - Severe or persistent diarrhea, especially if bloody - Worsening redness, swelling, pain, or fever Additional Instructions: - Store medication as directed (room temperature for tablets; refrigeration for suspension if applicable). - Do not share antibiotics with others. Print Language: Tamazight Coding Level of Care Code ED Contract Project Manager for Fran Abbott
[2024-10-02 14:45] LABS: Add Urine Microscopic? YES
[2024-10-02 16:10] VITALS: BP 130/76; PULSE 89; RESP 18; O2SAT 100
== END 2024-10-02 16:11 | disposition home or self-care (01) ==
PROVIDERS: Emergency Provider Physician Assistant; PCP Family Medicine
DX: L03.115 Cellulitis of right lower limb (principal); N30.00 Acute cystitis without hematuria
CPT/HCPCS: 73630; 81001; 99284; J9999